=== PATIENT | male | born 1940 | race American Indian/Alaskan Native ===

== ENCOUNTER 2022-02-09 11:31 | Emergency (ER) | payer MEDICARE ==
[2022-02-09] MEDS ORDERED: ACETAMINOPHEN 500 MG TAB PO ONE (12:34)
--- NOTE | 2022-02-09 13:12 | XRay Report ---
LEFT ANKLE 3 VIEWS INDICATION / CLINICAL INFORMATION: ANKLE INJURY. COMPARISON: None available. FINDINGS: BONES / JOINT(S): Mildly displaced fracture of the lateral malleolus. No other significant abnormalit y. SOFT TISSUES: Diffuse soft tissue swelling. ADDITIONAL FINDINGS: None. Signer Name: Rodríguez Dumas MD Signed: 02/09/2022 1:08 PM Workstation Name: [id number]
--- NOTE | 2022-02-09 13:45 | Vascular Lab Report ---
DUPLEX DOPPLER LOWER EXTREMITY VEINS, LEFT INDICATION / CLINICAL INFORMATION: SWELLING, PAIN. TECHNIQUE: Duplex doppler imaging was performed through the veins of the left lower extremity using venous compr ession and other maneuvers. COMPARISON: None available. FINDINGS: LEFT COMMON FEMORAL VEIN: Negative. LEFT FEMORAL VEIN: Negative. LEFT POPLITEAL VEIN: Negative. LEFT CALF VEINS: Negative. ADDITIONAL FINDINGS: None. IMPRESSION: 1. No sonographic evidence for DVT in the left lower extremity. Signer Name: Rodríguez Dumas MD Signed: 02/09/2022 1:40 PM Workstation Name: [email or web address]
[2022-02-09] MEDS ORDERED: HYDROcodone/ACETAMINOPHEN 5-325 MG TAB PO ONE (13:55)
[2022-02-09] MEDS ORDERED: ONDANSETRON 4 MG ODT TAB PO ONE (13:55)
--- NOTE | 2022-02-09 15:37 | Emergency Department Report ---
ED Lower Extremity HPI - General Chief Complaint: Extremity Injury, Lower Stated Complaint: LEFT ANKLE INJURY Source: patient Mode of arrival: Ambulatory Limitations: No Limitations - History of Present Illness Initial Comments: Patient is a 81-year-old -[place] male with history of hypertension who presents to the ED with complaint of acute onset persistent left ankle pain and swelling after he accidentally hit his left ankle against a heavy log when riding on a golf cart about 6 days ago. Patient states that he initially thought the injury was mild but progressively the pain has been getting worse. Patient states that he initially was also evaluated at an urgent care clinic but no x-rays were performed. Patient states that in the last 2 days he has not been able to bear weight adequately on the left leg because of worsening left ankle pain. Patient denies fall, nausea and vomiting, numbness and tingling or weakness of lower extremities bilaterally, chest pain or shortness of breath, fever, chills, back pain, hip pain, heavy lifting or head injury. MD Complaint: leg injury (left), ankle injury (Left ankle pain) -: Sudden, days(s) (6) Injury: Ankle: Left (pain and swelling) Type of Injury: blunt (HIT LEFT ANKLE AGAINST HEAVY LOG WHEN RIDING ON A GOLF CART) Place: street/outdoors Severity: severe Severity scale (0 -10): 7 Improves With: rest Worsens With: weight bearing, movement, palpation Context: direct blow (Hit left ankle against golf cart) Associated Symptoms: snap/pop sensation, swelling, able to partially bear weight. denies: numbness, tingling Treatments Prior to Arrival: NSAIDS - Related Data Previous Rx's Medication Instructions Recorded Last Taken Type HYDROcodone/APAP 5-325 [Wheeler 1 each PO Q6HR PRN #12 tablet 02/09/22 Unknown Rx 5/325] Ibuprofen [Motrin] 600 mg PO Q8H PRN #30 tablet 02/09/22 Unknown Rx Allergies Allergy/AdvReac Type Severity Reaction Status Date / Time No Known Allergies Allergy Verified 02/09/22 11:44 ED Review of Systems ROS: Stated complaint: LEFT ANKLE INJURY Other details as noted in HPI Constitutional: denies: chills, fever Eyes: denies: eye pain, eye discharge, vision change ENT: denies: ear pain, throat pain Respiratory: denies: cough, shortness of breath, wheezing Cardiovascular: denies: chest pain, palpitations Endocrine: no symptoms reported Gastrointestinal: denies: abdominal pain, nausea, vomiting, diarrhea, constipation, hematemesis Genitourinary: denies: urgency, dysuria Musculoskeletal: joint swelling (Left ankle swelling), arthralgia (Left ankle pain and swelling). denies: back pain Skin: denies: rash, lesions Neurological: denies: headache, weakness, paresthesias Psychiatric: denies: anxiety, depression Hematological/Lymphatic: denies: easy bleeding, easy bruising ED Past Medical Hx - Past Medical History Previous Medical History?: Yes Hx Hypertension: Yes - Medications Home Medications: Home Medications Medication Instructions Recorded Confirmed Last Taken Type HYDROcodone/APAP 5-325 [Wheeler 1 each PO Q6HR PRN #12 tablet 02/09/22 Unknown Rx 5/325] Ibuprofen [Motrin] 600 mg PO Q8H PRN #30 tablet 02/09/22 Unknown Rx ED Physical Exam - General Limitations: No Limitations General appearance: alert, in no apparent distress - Head Head exam: Present: atraumatic, normocephalic, normal inspection - Eye Eye exam: Present: normal appearance, PERRL, EOMI Pupils: Present: normal accommodation - ENT ENT exam: Present: normal exam, normal orophraynx, mucous membranes moist, TM's normal bilaterally, normal external ear exam - Neck Neck exam: Present: normal inspection, full ROM. Absent: tenderness - Respiratory Respiratory exam: Present: normal lung sounds bilaterally. Absent: respiratory distress, wheezes, rales, rhonchi, chest wall tenderness, accessory muscle use - Cardiovascular Cardiovascular Exam: Present: regular rate, normal rhythm, normal heart sounds. Absent: systolic murmur, diastolic murmur, rubs, gallop - GI/Abdominal GI/Abdominal exam: Present: soft, normal bowel sounds. Absent: tenderness, guarding, rebound, hyperactive bowel sounds, hypoactive bowel sounds - Extremities Exam Extremities exam: Present: normal inspection, tenderness (Palpable left ankle and foot tenderness with limited range of motion due to pain), normal capillary refill, joint swelling. Absent: full ROM (Limited range of motion of left ankle due to pain), calf tenderness - Back Exam Back exam: Present: normal inspection, full ROM. Absent: tenderness, CVA tenderness (R), CVA tenderness (L), muscle spasm, paraspinal tenderness, vertebral tenderness - Neurological Exam Neurological exam: Present: alert, oriented X3, CN II-XII intact, normal gait, reflexes normal - Psychiatric Psychiatric exam: Present: normal affect, normal mood - Skin Skin exam: Present: warm, dry, intact, normal color. Absent: rash ED Course Vital Signs 02/09/22 11:39 Temperature 97 F L Pulse Rate 73 Respiratory 16 Rate Blood Pressure 152/90 [Right] O2 Sat by Pulse 97 Oximetry ED Lower Extremity MDM - Radiology Data Radiology results: report reviewed, image reviewed [facility] [address] [place] [address] XRay Report Signed Patient: MONTRELL TONG MR#: [id number] 47 : 1940 Acct:[id number] Age/Sex: 81 / M ADM Date: 02/09/22 Loc: ED Attending Dr: Ordering Physician: TWYLA PATTERSON Date of Service: 02/09/22 Procedure(s): XR ankle 3+V LT Accession Number(s): [id number] cc: TWYLA PATTERSON Fluoro Time In Minutes: LEFT ANKLE 3 VIEWS INDICATION / CLINICAL INFORMATION: ANKLE INJURY. COMPARISON: None available. FINDINGS: BONES / JOINT(S): Mildly displaced fracture of the lateral malleolus. No other significant abnormality. SOFT TISSUES: Diffuse soft tissue swelling. ADDITIONAL FINDINGS: None. Signer Name: Rodríguez Dumas MD Signed: 02/09/2022 1:08 PM Workstation Name: [id number] Transcribed By: YVON Dictated By: Rodríguez Dumas MD Electronically Authenticated By: Rodríguez Dumas MD Signed Date/Time: 02/09/22 1308 DD/ 130 TD/TT: - Medical Decision Making This is a 81-year-old -[place] male with history of hypertension who presents to the ED with complaint of acute onset persistent left ankle pain and swelling after he accidentally hit his left ankle against a heavy log when riding on a golf cart about 6 days ago. Patient states that he initially thought the injury was mild but progressively the pain has been getting worse. Patient states that he initially was also evaluated at an urgent care clinic but no x-rays were performed. Patient states that in the last 2 days he has not been able to bear weight adequately on the left leg because of worsening left ankle pain. In the ED, patient is alert and oriented x3 and is not in any distress. Patient was treated for pain in the ED. Left ankle x-ray showeda mildly displaced fracture of the lateral malleolus. No other significant abnormality. The left ankle was splinted with a posterior long-leg splint and the patient fitted with crutches. On reevaluation, patient is neurovascularly intact of the left foot. Patient was therefore discharged home on pain medications given a referral to the orthopedic surgeon Dr. Strange for follow-up. Patient was advised to contact Dr. Strange's office first thing in the morning on , February 10, 2022 to schedule a follow-up appointment. Patient was advised return to the ED immediately if symptoms get worse. - Differential Diagnosis ankle fracture; ankle sprain; foot contusion; ankle contusion Critical care attestation.: If time is entered above; I have spent that time in minutes in the direct care of this critically ill patient, excluding procedure time. ED Disposition Clinical Impression: Contusion of left lower leg, initial encounter Closed fracture of left lateral malleolus Qualifiers: Encounter type: initial encounter Fracture alignment: displaced Qualified Code(s): S82.62XA - Displaced fracture of lateral malleolus of left fibula, init ial encounter for closed fracture Disposition: 01 HOME / SELF CARE / HOMELESS Is pt being admited?: No Does the pt Need Aspirin: No Condition: Stable Instructions: Cast or Splint Care, Adult, [id number], Ankle Fracture, Contusion, [id number], Displaced Medial or Posterior Malleolar Ankle Fracture Treated With ORIF, Care After Additional Instructions: The left ankle x-ray showed and a mildly displaced fracture of the lateral malleolus. No other significant abnormality. Therefore take medication with food, drink plenty of fluids and follow-up with the orthopedic surgeon Dr. Strange for further evaluation. Return to the ED immediately if symptoms get worse. Contact Dr. Strange's office first thing in the morning on , February 10, 2022 to schedule a follow-up appointment. Prescriptions: Ibuprofen [Motrin] 600 mg PO Q8H PRN #30 tablet PRN Reason: Pain HYDROcodone/APAP 5-325 [Wheeler 5/325] 1 each PO Q6HR PRN #12 tablet PRN Reason: Pain Referrals: DORIS STRANGE MD [Staff Physician] - 3-5 Days Time of Disposition: 15:36 Print Language: SRI LANKAN
[2022-02-09 15:51] VITALS: BP 132/65
== END 2022-02-09 15:51 | disposition home or self-care (01) ==
LOC: ED 11:31
DX: S82.62XA Displaced fracture of lateral malleolus of left fibula, initial encounter for closed fracture (principal); S90.02XA Contusion of left ankle, initial encounter; I10 Essential (primary) hypertension; W22.8XXA Striking against or struck by other objects, initial encounter; Y93.89 Activity, other specified; Y92.89 Other specified places as the place of occurrence of the external cause; Y99.8 Other external cause status
CPT/HCPCS: 99284; J3490; Q0162